=== PATIENT | female | born 1980 | race Caucasian/White ===

== ENCOUNTER 2017-10-03 11:31 | Emergency (ER) | payer MEDICAID ==
[2017-10-03] MEDS ORDERED: Acetaminophen/oxyCODONE 325-5 MG Tab PO ONE (13:33)
[2017-10-03 14:03] VITALS: BP 125/79
--- NOTE | 2017-10-03 14:09 | EDM.PDOC ---
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 cementing surgery for a Fallopian tube attached to bladder, later was lifting a suitcase and pain in her low back living in [facility] at the time, had CT at [facility] which showed no hernia, later had a MRI in [place] at [facility] that showed 2 disc missing and narrowing of disc space referred to Neurosurgeon in [facility] and a fusion of L4-S1 planned, waiting on insurance approval [place] per [place] pt has had narcotics filled only since 07-29-17, received 90 tabs of Percocet 5/325 in August, 60 tabs in September pt last had 50 tabs filled 09-15-[address] Damon, he has been doing urine drug screens, he mailed her an Rx for 50 tabs yesterday, pt reports that she ran out 2d ago, has been taking 3 tabs a day 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 to 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[employer], works 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, works 6-12h/d, on her feet when working Dr Damon said he would need to see pt before more fills pt says she does "not like any of the doctors" locally does have h/o drug abuse in the past had apt at [facility] in [facility] on 09-28-17 with Susi Grove CNP with dx of lumbosacral spondylosis with radiculopathy - Related Data Allergies Allergy/AdvReac Type Severity Reaction Status Date / Time Antihistamines - Alkylamine Allergy Swelling Verified 10/03/17 13:34 Antihistamines - Ethanolamine Allergy Swelling Verified 10/03/17 13:34 Antihistamines - Allergy Swelling Verified 10/03/17 13:34 Ethylenediamine Antihistamines - Piperazine Allergy Swelling Verified 10/03/17 13:34 Antihistamines - Piperidine Allergy Swelling Verified 10/03/17 13:34 fentanyl Allergy Swelling Verified 10/03/17 13:34 ketorolac tromethamine Allergy Swelling Verified 10/03/17 13:34 [From Toradol] morphine Allergy Swelling Verified 10/03/17 13:34 prochlorperazine edisylate Allergy Swelling Verified 10/03/17 13:34 [From Compazine] prochlorperazine maleate Allergy Swelling Verified 10/03/17 13:34 [From Compazine] promethazine Allergy Swelling Verified 10/03/17 13:34 tramadol HCl [From Ultram] Allergy Swelling Verified 10/03/17 13:34 Home Meds: Home Meds Albuterol [Proair HFA] 2 puff INH Q4H PRN 12/08/15 [History] Budesonide/Formoterol Fumarate [Symbicort 80-4.5 Mcg Inhaler] 2 puff INH BID [History] Acetaminophen/oxyCODONE [Percocet 325-5 MG] 1 each PO Q8H PRN 10/03/17 [History] EPINEPHrine [Epinephrine] 0.3 mg IM ASDIRECTED 10/03/17 [History] Melatonin 10 mg PO BEDTIME 10/03/17 [History] clonazePAM [Klonopin] 1 mg PO BID 10/03/17 [History] oxyCODONE HCl/Acetaminophen [Oxycodone-Acetaminophen 5-325] 1 each PO TID PRN # 6 tablet 10/03/17 [Rx] Past Medical History Other OB/BYN History: LT OVARIAN CYST Neurological History: Reports: Migraines Psychiatric History: Reports: Anxiety, Other (See Below) Other Psychiatric History: none - Infectious Disease History Infectious Disease History: Reports: Chicken Pox - Past Surgical History Female Surgical History: Reports: None, D&C, Tubal Ligation Musculoskeletal Surgical History: Reports: Carpal Tunnel Social & Family History - Family History Family Medical History: Noncontributory - Caffeine Use Caffeine Use: Reports: Coffee, Tea Other Caffeine Use: daily ED ROS GENERAL - Review of Systems Review Of Systems: See Below Constitutional: Reports: No Symptoms HEENT: Reports: No Symptoms Respiratory: Reports: No Symptoms Cardiovascular: Reports: No Symptoms Endocrine: Reports: No Symptoms GI/Abdominal: Reports: No Symptoms : Reports: No Symptoms Musculoskeletal: Reports: Back Pain Skin: Reports: No Symptoms Neurological: Reports: No Symptoms Psychiatric: Reports: No Symptoms Hematologic/Lymphatic: Reports: No Symptoms Immunologic: Reports: No Symptoms ED EXAM,LOWER BACK PAIN/INJURY - Physical Exam Exam: See Below Exam Limited By: No Limitations General Appearance: Alert, WD/WN, Mild Distress Back Exam: Other (mild tender in L4-L5 area, no spasm, moving and sitting and changing position easily, no evidence of radiculopathy, walks hunched over slightly with hand on her back) Neurological: Alert, CN II-XII Intact, No Motor/Sensory Deficits, Oriented x 3 Skin Exam: Warm, Dry, Intact, Normal Color, No Rash Course - Vital Signs Last Recorded V/S: Last Vital Signs Temp 36.8 C 10/03/17 11:31 Pulse 60 10/03/17 11:31 Resp 18 10/03/17 11:31 BP 130/77 10/03/17 11:31 Pulse Ox 100 10/03/17 11:31 - Orders/Labs/Meds Meds: Medications Discontinued Medications Generic Name Dose Route Start Last Admin Trade Name Katherine PRN Reason Stop Dose Admin Oxycodone/Acetaminophen 1 tab 10/03/17 13:33 10/03/17 13:44 Percocet 325-5 Mg PO 10/03/17 13:34 1 tab ONETIME ONE Administration Departure - Departure Time of Disposition: 14:03 Disposition: Home, Self-Care 01 Condition: Good Clinical Impression: Lumbosacral spondylosis, Chronic low back pain - Discharge Information Prescriptions: oxyCODONE HCl/Acetaminophen [Oxycodone-Acetaminophen 5-325] 1 each PO TID PRN # 6 tablet PRN Reason: Pain Referrals: PCP,None [Primary Care Provider] - Additional Instructions: Continue current treatment plan. Continue oxycodone with acetaminophen 5/325 mg 1 tab 3 times a day as needed. Sleep on a firm mattress. See Dr Franco prior to your next refill of your prescription.
== END 2017-10-03 14:15 | disposition home or self-care (01) ==
LOC: FB.ED 11:31
DX: M47.897 Other spondylosis, lumbosacral region (principal); Z88.8 Allergy status to other drugs, medicaments and biological substances; Z79.899 Other long term (current) drug therapy; Z88.5 Allergy status to narcotic agent
CPT/HCPCS: 99282; A9270-GY

== ENCOUNTER 2017-11-26 04:55 | Day surgery (SDC) | payer MEDICAID ==
[2017-11-26] MEDS ORDERED: Glucagon,Human Recombinant 1 MG Vial IVPUSH ONE ×2 (05:09→06:05)
[2017-11-26] MEDS ORDERED: HYDROmorphone 2 MG/ML SDV IVPUSH ONE ×2 (05:13→06:25)
[2017-11-26] MEDS ORDERED: Sodium Chloride 0.9% 1,000 ML IV SCH (05:15)
--- NOTE | 2017-11-26 05:16 | EDM.PDOC ---
ED HPI GENERAL MEDICAL PROBLEM - General Stated Complaint: NAUSEA Time Seen by Provider: 11/26/17 04:55 Source of Information: Reports: Patient, Family History Limitations: Reports: No Limitations - History of Present Illness INITIAL COMMENTS - FREE TEXT/NARRATIVE: 37 y.o.w.f with a h/o low back pain s/p low back surgery on 10/30/2017, is using a brace, came to the 6 hours after she swallowed shrimp, which is stuck in her esophagus. Pt is not able to swallow food. liquid, including saliva. Pt attempted to "vomit the shrimp out" since 10 pm last night. She decided to come to the ED at about 4.30 am. No N/V/D or any other acute medical issues. BP 131/ 98 RR 20 Pulse ox 98% on RA pulse 87 Temp 36.9 Onset Date: 11/25/17 Onset Time: 22:00 Duration: Hour(s):, Intermittent Location: Reports: Chest, Back Quality: Reports: Dull, Pressure Severity: Mild Improves with: Reports: Rest Worsens with: Reports: Movement Context: Reports: Other (food bolus) Associated Symptoms: Reports: Other (back surgery on 10/30/2017) Back Pain Score (Numeric/FACES): 10 - Related Data Allergies Allergy/AdvReac Type Severity Reaction Status Date / Time Antihistamines - Alkylamine Allergy Swelling Verified 11/26/17 05:50 Antihistamines - Ethanolamine Allergy Swelling Verified 11/26/17 05:50 Antihistamines - Allergy Swelling Verified 11/26/17 05:50 Ethylenediamine Antihistamines - Piperazine Allergy Swelling Verified 11/26/17 05:50 Antihistamines - Piperidine Allergy Swelling Verified 11/26/17 05:50 fentanyl Allergy Swelling Verified 11/26/17 05:50 ketorolac tromethamine Allergy Swelling Verified 11/26/17 05:50 [From Toradol] morphine Allergy Swelling Verified 11/26/17 05:50 prochlorperazine edisylate Allergy Swelling Verified 11/26/17 05:50 [From Compazine] prochlorperazine maleate Allergy Swelling Verified 11/26/17 05:50 [From Compazine] promethazine Allergy Swelling Verified 11/26/17 05:50 tramadol HCl [From Ultram] Allergy Swelling Verified 11/26/17 05:50 Home Meds: Home Meds Albuterol [Proair HFA] 2 puff INH Q4H PRN 12/08/15 [History] Budesonide/Formoterol Fumarate [Symbicort 80-4.5 Mcg Inhaler] 2 puff INH BID [History] EPINEPHrine [Epinephrine] 0.3 mg IM ASDIRECTED 10/03/17 [History] Melatonin 10 mg PO BEDTIME 10/03/17 [History] clonazePAM [Klonopin] 1 mg PO BID 10/03/17 [History] Acetaminophen/oxyCODONE [Percocet 325-10 MG] 1 tab PO Q4H PRN 11/26/17 [History] Methocarbamol 500 mg PO QID 11/26/17 [History] Omeprazole 20 mg PO DAILY 30 Days #30 cap.sr 11/26/17 [Rx] Pregabalin [Lyrica] 100 mg PO QID 11/26/17 [History] oxyCODONE ER [OxyCONTIN] 20 mg PO Q12HR 11/26/17 [History] 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 Musculoskeletal History: Reports: Back Pain, Chronic Neurological History: Reports: Migraines Psychiatric History: Reports: Anxiety, Other (See Below) Other Psychiatric History: none - Infectious Disease History Infectious Disease History: Reports: Chicken Pox - Past Surgical History Female Surgical History: Reports: None, D&C, Tubal Ligation Musculoskeletal Surgical History: Reports: Carpal Tunnel Social & Family History - Family History Family Medical History: Noncontributory - Caffeine Use Caffeine Use: Reports: Coffee, Tea Other Caffeine Use: daily ED ROS GENERAL - Review of Systems Review Of Systems: See Below Constitutional: Reports: No Symptoms HEENT: Reports: No Symptoms Respiratory: Reports: No Symptoms Cardiovascular: Reports: No Symptoms Endocrine: Reports: No Symptoms GI/Abdominal: Reports: Other (food bolus "stuck') : Reports: No Symptoms Musculoskeletal: Reports: Back Pain Skin: Reports: No Symptoms Neurological: Reports: No Symptoms Psychiatric: Reports: No Symptoms Hematologic/Lymphatic: Reports: No Symptoms Immunologic: Reports: No Symptoms ED EXAM, GI/ABD - Physical Exam Exam: See Below Exam Limited By: No Limitations General Appearance: Alert, WD/WN, Anxious, Moderate Distress Eyes: Bilateral: Normal Appearance Ears: Normal External Exam Nose: Normal Inspection Throat/Mouth: Normal Inspection, Normal Lips, Normal Voice, No Airway Compromise Head: Atraumatic, Normocephalic Neck: Normal Inspection, Supple, Non-Tender, Full Range of Motion Respiratory/Chest: No Respiratory Distress, Lungs Clear, Normal Breath Sounds, No Accessory Muscle Use Cardiovascular: Normal Peripheral Pulses, Regular Rate, Rhythm, No Edema, No Murmur, No Rub GI/Abdominal Exam: Normal Bowel Sounds, Soft, Non-Tender, No Organomegaly, No Abnormal Bruit, No Mass, Pelvis Stable (Female) Exam: Deferred Rectal (Female) Exam: Deferred Back Exam: Decreased Range of Motion, Vertebral Tenderness (S/P back surgery ) Extremities: Normal Inspection, Normal Range of Motion, Non-Tender, No Pedal Edema, Normal Capillary Refill Neurological: Alert, Oriented, CN II-XII Intact, Normal Cognition, Normal Gait, No Motor/Sensory Deficits Psychiatric: Anxious, Tearful Skin Exam: Warm, Dry, Intact, Normal Color, No Rash Lymphatic: No Adenopathy Course - Vital Signs Text/Narrative:: 37 y.o.w.f with a h/o low back pain s/p low back surgery on 10/30/2017, is using a brace, came to the 6 hours after she swallowed shrimp, which is stuck in her esophagus. Pt is not able to swallow food. liquid, including saliva. Pt attempted to "vomit the shrimp out" since 10 pm last night. She decided to come to the ED at about 4.30 am. No N/V/D or any other acute medical issues. BP 131/ 98 RR 20 Pulse ox 98% on RA pulse 87 Temp 36.9 PE: WNWD W F s/p low back surgery, unable to swallow food, including saliva Labs: CBC/BMP were basically nl. Impression: Esophageal food bolus, 10/30/17 Back surgery, anxiety. Tx: Glucagon 1+1 mg, Dilaudid for Back pain (has many allergies) Ativan. NTG. NS 6.55 am Consultation: Dr. Jolly, Surgeon: Is planing the upper GI at 7 .30 am, call surgical team Reexam: No improvement with meds. Plan: Endoscopy, Dr. Jolly, Surgeon took over the care. Last Recorded V/S: Last Vital Signs Temp 36.6 C 11/26/17 08:00 Pulse 74 11/26/17 07:00 Resp 18 11/26/17 09:15 BP 103/62 11/26/17 09:15 Pulse Ox 99 11/26/17 09:15 - Orders/Labs/Meds Orders: Active Orders 24 hr Category Date Time Status Transfer Patient (Change bed) [ADT] Routine ADT 11/26/17 07:40 Ordered Cooling Warming Measures [RC] ASDIRECTED Care 11/26/17 05:14 Active Notify Provider Consults [RC] ASDIRECTED Care 11/26/17 07:38 Active Ready for Discharge [RC] PER UNIT ROUTINE Care 11/26/17 07:59 Active Consult to Physician [CONS] Urgent Cons 11/26/17 07:00 Ordered Ice Bag [Ice Therapy] [OM.PC] Routine Oth 11/26/17 05:14 Ordered Labs: Laboratory Tests 11/26/17 11/26/17 Range/Units 05:25 05:25 WBC 7.1 (4.5-12.0) X10-3/uL RBC 4.40 (3.23-5.20) x10(6)uL Hgb 13.9 (11.5-15.5) g/dL Hct 42.0 (30.0-51.3) % MCV 95.5 (80-96) fL MCH 31.6 (27.7-33.6) pg MCHC 33.1 (32.2-35.4) g/dL RDW 12.2 (11.5-15.5) % Plt Count 284 (125-369) X10(3)uL MPV 7.9 (7.4-10.4) fL Neut % (Auto) 45.9 L (46-82) % Lymph % (Auto) 35.9 (13-37) % Humphreys % (Auto) 6.4 (4-12) % Eos % (Auto) 11 H (1.0-5.0) % Baso % (Auto) 1 (0-2) % Neut # (Auto) 3.3 (1.6-8.3) # Lymph # (Auto) 2.5 (0.6-5.0) # Humphreys # (Auto) 0.5 (0.0-1.3) # Eos # (Auto) 0.8 (0.0-0.8) # Baso # (Auto) 0.0 (0.0-0.2) # Sodium 141 (135-145) mmol/L Potassium 3.8 (3.5-5.3) mmol/L Chloride 104 (100-110) mmol/L Carbon Dioxide 29 (21-32) mmol/L BUN 12 (7-18) mg/dL Creatinine 0.8 (0.55-1.02) mg/dL Est Cr Clr Drug Dosing TNP Estimated GFR (MDRD) > 60 (>60) BUN/Creatinine Ratio 15.0 (9-20) Glucose 97 (80-116) mg/dL Calcium 8.7 (8.6-10.2) mg/dL Meds: Medications Discontinued Medications Generic Name Dose Route Start Last Admin Trade Name Freq PRN Reason Stop Dose Admin Glucagon 1 mg 11/26/17 05:09 11/26/17 05:33 Glucagen IVPUSH 11/26/17 05:10 1 mg ONETIME ONE Administration Glucagon 1 mg 11/26/17 06:05 11/26/17 06:10 Glucagen IVPUSH 11/26/17 06:06 1 mg ONETIME ONE Administration Hydromorphone HCl 0.5 mg 11/26/17 05:13 11/26/17 05:34 Dilaudid IVPUSH 11/26/17 05:14 0.5 mg ONETIME ONE Administration Hydromorphone HCl 0.5 mg 11/26/17 06:25 11/26/17 06:35 Dilaudid IVPUSH 11/26/17 06:26 0.5 mg ONETIME ONE Administration Sodium Chloride 1,000 mls @ 125 mls/hr 11/26/17 05:15 11/26/17 05:34 Normal Saline IV 125 mls/hr ASDIRECTED CHELSI Administration Lorazepam 0.5 mg 11/26/17 06:01 11/26/17 06:09 Ativan IVPUSH 11/26/17 06:02 0.5 mg ONETIME ONE Administration Nitroglycerin 1 gm 11/26/17 06:30 11/26/17 06:36 Nitro-Bid 2% TOP 11/26/17 06:31 1 gm ONETIME ONE Administration Ondansetron HCl 8 mg 11/26/17 05:59 11/26/17 06:09 Zofran IVPUSH 11/26/17 06:00 8 mg ONETIME ONE Administration Pantoprazole Sodium 40 mg 11/26/17 08:00 11/26/17 08:21 Protonix Iv IVPUSH 11/26/17 08:01 40 mg ONETIME ONE Administration Departure - Departure Time of Disposition: 08:00 Disposition: Refer to Observation Condition: Good Clinical Impression: Food impaction of esophagus Qualifiers: Encounter type: initial encounter Qualified Code(s): T18.128A - Food in esophagus causing other injury, initial encounter - Discharge Information - My Orders Last 24 Hours: My Active Orders 11/26/17 05:14 Cooling Warming Measures [RC] ASDIRECTED Ice Bag [Ice Therapy] [OM.PC] Routine 11/26/17 07:00 Consult to Physician [CONS] Urgent 11/26/17 07:38 Notify Provider Consults [RC] ASDIRECTED 11/26/17 07:40 Transfer Patient (Change bed) [ADT] Routine - Assessment/Plan Last 24 Hours: My Active Orders 11/26/17 05:14 Cooling Warming Measures [RC] ASDIRECTED Ice Bag [Ice Therapy] [OM.PC] Routine 11/26/17 07:00 Consult to Physician [CONS] Urgent 11/26/17 07:38 Notify Provider Consults [RC] ASDIRECTED 11/26/17 07:40 Transfer Patient (Change bed) [ADT] Routine
[2017-11-26] MEDS ORDERED: Ondansetron 4 MG/2 ML SDV IVPUSH ONE (05:59)
[2017-11-26] MEDS ORDERED: LORazepam 2 MG/ML SDV IVPUSH ONE (06:01)
[2017-11-26] MEDS ORDERED: Nitroglycerin 2% Oint 1 GM UD Packet TOP ONE (06:30)
--- NOTE | 2017-11-26 07:42 | PCM.HPR ---
H & P Addendum review - H & P Addendum Review Date of Original H & P: 11/26/17 Date Reviewed: 11/26/17 Time Reviewed: 07:40 Patient was Examined: No Changes (Seen by Dr Foster in ED for food bolus since last pm. Conservative measures has been unsucessful. Will proceed with upper endo and removal under MAC. Consent obtained.)
[2017-11-26] MEDS ORDERED: Lidocaine 2% 100 MG/5 ML Syringe IVPUSH ONE (07:45)
[2017-11-26] MEDS ORDERED: Midazolam 1 MG/ML 2 ML SDV IV ONE (07:45)
[2017-11-26] MEDS ORDERED: Propofol 200 MG/20 ML SDV IV ONE (07:45)
[2017-11-26] MEDS ORDERED: Lactated Ringers 1,000 ML IV ONE (07:45)
--- NOTE | 2017-11-26 07:58 | PCM.OPNOTE ---
- General Post-Op/Procedure Note Date of Surgery/Procedure: 11/26/17 Operative Procedure(s): EGD with removal of Foreign Body Findings: Food Bolus Pre Op Diagnosis: Foreign Body Esophagus Post-Op Diagnosis: Same Anesthesia Technique: MACEY Primary Surgeon: Yannick Jolly Anesthesia Provider: Bhumi Vergara Complications: None Condition: Good
[2017-11-26] MEDS ORDERED: Pantoprazole 40 MG Vial IVPUSH ONE (08:00)
--- NOTE | 2017-11-26 08:33 | OR ---
DATE OF OPERATION: 11/26/2017 SURGEON: Yannick Jolly MD PREOPERATIVE DIAGNOSIS: Foreign body, esophagus. POSTOPERATIVE DIAGNOSIS: Foreign body, esophagus. PROCEDURE: EGD with removal of foreign body. ANESTHESIA: MAC. HISTORY: This patient presented to the emergency room with a foreign body impaction in her esophagus since last night. Conservative measures have failed. Upper endoscopy was recommended. Risks and complications were reviewed and informed consent obtained. DESCRIPTION OF PROCEDURE: The patient was brought to the procedure room, where IV sedation was administered. The oral bite block was placed and upper endoscope advanced into the cervical esophagus with some liquid and food particles being present, which were suctioned. Vocal cords were viewed and were normal. The scope was advanced to the distal esophagus, where a food bolus was present. This was gently pushed into the stomach without difficulty. The rest of the food particles went into the stomach without difficulty. There was some minimal oozing and inflammation present at the EG junction. I cannot tell if this was a stricture that had been broken. No obvious evidence of malignancy or other concerns were present. Photographs were taken. Scope was then advanced through the remaining stomach and into the second portion of the duodenum. All of this appeared normal. Air was removed from the stomach, and the scope withdrawn through the esophagus. The patient tolerated the procedure well and returned to Recovery in a stable condition. The patient will be started on omeprazole 20 mg daily for one month. I will see her back in followup for two weeks, and we will plan on doing an upper endoscopy in approximately one month, which will allow time for this to heal. /[id number] KEVIN/EVGENY
[2017-11-26 10:35] VITALS: BP 103/62
== END 2017-11-26 09:31 | disposition home or self-care (01) ==
LOC: FB.ED 04:55 → FB.SDS 07:40 → FB.MS 07:58 → FB.SDS 09:31
PROVIDERS: ATTEND Surgery
DX: T18.128A Food in esophagus causing other injury, initial encounter (principal); X58.XXXA Exposure to other specified factors, initial encounter; J45.909 Unspecified asthma, uncomplicated; Z88.5 Allergy status to narcotic agent; Z88.8 Allergy status to other drugs, medicaments and biological substances
CPT/HCPCS: 36415; 43247; 80048; 85025; 96374; 96375; 96376; 99285; A9270; C9113; J1170; J1610; J2001; J2060; J2250; J2405; J2704; J7030; J7120

== ENCOUNTER 2018-02-01 15:47 | Emergency (ER) | payer MEDICAID ==
[2018-02-01] MEDS ORDERED: HYDROmorphone 2 MG/ML SDV IM ONE (16:29)
--- NOTE | 2018-02-01 16:37 | EDM.PDOC ---
ED HPI GENERAL MEDICAL PROBLEM - General Chief Complaint: Back Pain or Injury Stated Complaint: BACK PAIN, POST SURGERY Time Seen by Provider: 02/01/18 16:31 Source of Information: Reports: Patient History Limitations: Reports: No Limitations - History of Present Illness INITIAL COMMENTS - FREE TEXT/NARRATIVE: Patient is s/p L4-S1 fusion 10/2017 @ [facility]. Was rx'd Oxycodone and Medrol dosepak yesterday at that clinic. Patient attempted to fill the prescription today at [facility], but [place] Medicaid [place] cover [place] [facility] [place] Patient comes to the ED for relief of worsening back pain since the surgery. Pain radiates to left groin. - Related Data Allergies Allergy/AdvReac Type Severity Reaction Status Date / Time Antihistamines - Alkylamine Allergy Swelling Verified 02/01/18 17:06 Antihistamines - Ethanolamine Allergy Swelling Verified 02/01/18 17:06 Antihistamines - Allergy Swelling Verified 02/01/18 17:06 Ethylenediamine Antihistamines - Piperazine Allergy Swelling Verified 02/01/18 17:06 Antihistamines - Piperidine Allergy Swelling Verified 02/01/18 17:06 diphenhydramine Allergy Swelling Verified 02/01/18 17:06 [From Benadryl] fentanyl Allergy Swelling Verified 02/01/18 17:06 ketorolac tromethamine Allergy Swelling Verified 02/01/18 17:06 [From Toradol] morphine Allergy Swelling Verified 02/01/18 17:06 prochlorperazine edisylate Allergy Swelling Verified 02/01/18 17:06 [From Compazine] prochlorperazine maleate Allergy Swelling Verified 02/01/18 17:06 [From Compazine] promethazine Allergy Swelling Verified 02/01/18 17:06 tramadol HCl [From Ultram] Allergy Swelling Verified 02/01/18 17:06 Home Meds: Home Meds clonazePAM [Klonopin] 1 mg PO BID 10/03/17 [History] Acetaminophen/oxyCODONE [Percocet 325-10 MG] 1 tab PO Q4H PRN 11/26/17 [History] methylPREDNISolone [Medrol] 4 mg PO ASDIRECTED #1 dosepk 02/01/18 [Rx] 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 Musculoskeletal History: Reports: Back Pain, Chronic Other Musculoskeletal History: digenerative bone disease Neurological History: Reports: Migraines Psychiatric History: Reports: Anxiety, Other (See Below) Other Psychiatric History: none - Infectious Disease History Infectious Disease History: Reports: Chicken Pox - Past Surgical History Female Surgical History: Reports: None, D&C, Tubal Ligation Musculoskeletal Surgical History: Reports: Carpal Tunnel Social & Family History - Family History Family Medical History: Noncontributory - Caffeine Use Caffeine Use: Reports: Coffee, Tea Other Caffeine Use: daily ED ROS GENERAL - Review of Systems Review Of Systems: See Below Constitutional: Reports: No Symptoms HEENT: Reports: No Symptoms Respiratory: Reports: No Symptoms Cardiovascular: Reports: No Symptoms Endocrine: Reports: No Symptoms GI/Abdominal: Reports: No Symptoms : Reports: No Symptoms Musculoskeletal: Reports: No Symptoms Skin: Reports: No Symptoms Neurological: Reports: No Symptoms Psychiatric: Reports: No Symptoms Hematologic/Lymphatic: Reports: No Symptoms Immunologic: Reports: No Symptoms ED EXAM,LOWER BACK PAIN/INJURY - Physical Exam Exam: See Below Exam Limited By: No Limitations General Appearance: Alert, WD/WN, No Apparent Distress Nose: Normal Inspection Throat/Mouth: No Airway Compromise Head: Atraumatic, Normocephalic Neck: Full Range of Motion Respiratory/Chest: No Respiratory Distress, Lungs Clear, Normal Breath Sounds Cardiovascular: Regular Rate, Rhythm, No Murmur (Female) Exam: Deferred Rectal (Female) Exam: Deferred Back Exam: Other (moderate tenderness lower back) Extremities: Normal Range of Motion Neurological: Alert, Normal Mood/Affect Psychiatric: Normal Affect, Normal Mood Skin Exam: Warm, Dry, Intact Course - Orders/Labs/Meds Meds: Medications Discontinued Medications Generic Name Dose Route Start Last Admin Trade Name Freq PRN Reason Stop Dose Admin Hydromorphone HCl 0.5 mg 02/01/18 16:29 Dilaudid IM 02/01/18 16:30 ONETIME ONE Departure - Departure Time of Disposition: 17:41 Disposition: Home, Self-Care 01 Clinical Impression: Back pain Qualifiers: Back pain location: low back pain Chronicity: chronic Back pain laterality: left Sciatica presence: with sciatica Sciatica laterality: sciatica of left side Qualified Code(s): M54.42 - Lumbago with sciatica, left side; G89.29 - Other chronic pain - Discharge Information *PRESCRIPTION DRUG MONITORING PROGRAM REVIEWED*: Yes *COPY OF PRESCRIPTION DRUG MONITORING REPORT IN PATIENT LUCY: No Prescriptions: methylPREDNISolone [Medrol] 4 mg PO ASDIRECTED #1 dosepk Referrals: Bing Massey, [id number] TANK DRIVER [Primary Care Provider] - Forms: ED Department Discharge Additional Instructions: Fill prescription for Medrol dosepak and take as directed. Fill the prescription for Oxycodone written by the [facility], another prescription for Oxycodone will not be prescribed by today's provider at [facility]. Follow up with your Neurosurgeon in 2- 3 days.
[2018-02-01 20:03] VITALS: BP 124/84
== END 2018-02-01 17:05 | disposition home or self-care (01) ==
LOC: FB.ED 15:47
DX: G89.18 Other acute postprocedural pain (principal); M54.42 Lumbago with sciatica, left side; Z88.8 Allergy status to other drugs, medicaments and biological substances; Z79.899 Other long term (current) drug therapy
CPT/HCPCS: 96372; 99283; J1170

== ENCOUNTER 2018-05-24 10:21 | Emergency (ER) | payer MEDICAID ==
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
[2018-05-24] MEDS ORDERED: HYDROmorphone 2 MG/ML SDV IVPUSH ONE ×2 (10:40→11:41)
[2018-05-24] MEDS ORDERED: Sodium Chloride 0.9% 1,000 ML IV ONE (11:48)
[2018-05-24] MEDS ORDERED: LORazepam 2 MG/ML SDV IVPUSH ONE (12:38)
[2018-05-24 14:20] VITALS: BP 102/62
== END 2018-05-24 14:15 ==
LOC: FB.ED 10:21
DX: N83.202 Unspecified ovarian cyst, left side (principal); R10.2 Pelvic and perineal pain; Z88.8 Allergy status to other drugs, medicaments and biological substances; Z88.5 Allergy status to narcotic agent; Z79.899 Other long term (current) drug therapy
CPT/HCPCS: 36415; 74176; 76830; 76857; 80048; 81001; 85025; 96361; 96374; 96375; 96376; 99284; J1170; J2060; J7030

== ENCOUNTER 2018-12-02 15:06 | Emergency (ER) | payer MEDICAID ==
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
[2018-12-02] MEDS ORDERED: oxyCODONE 5 MG Tab PO ONE (15:42)
[2018-12-02 15:46] VITALS: BP 144/91; PULSE 67
== END 2018-12-02 17:35 | disposition home or self-care (01) ==
LOC: FB.ED 15:06
DX: S33.5XXA Sprain of ligaments of lumbar spine, initial encounter (principal); S46.911A Strain of unspecified muscle, fascia and tendon at shoulder and upper arm level, right arm, initial encounter; J45.909 Unspecified asthma, uncomplicated; K21.9 Gastro-esophageal reflux disease without esophagitis; F41.9 Anxiety disorder, unspecified; F32.9 Major depressive disorder, single episode, unspecified; F17.200 Nicotine dependence, unspecified, uncomplicated; Z88.5 Allergy status to narcotic agent; Z88.8 Allergy status to other drugs, medicaments and biological substances; Z88.6 Allergy status to analgesic agent; Z79.899 Other long term (current) drug therapy; Z87.442 Personal history of urinary calculi; W10.8XXA Fall (on) (from) other stairs and steps, initial encounter
CPT/HCPCS: 72100; 72170; 99283; A9270